=== PATIENT | female | born 1940 | race Caucasian/White ===

== ENCOUNTER 2016-12-18 20:29 | Emergency (ER) | payer MEDICARE, OTHER ==
[2016-12-18] MEDS ORDERED: Sodium Chloride 0.9% 10 ML Syringe FLUSH PRN (21:59)
[2016-12-18] MEDS ORDERED: Sodium Chloride 0.9% 1,000 ML IV SCH (22:00)
[2016-12-18] MEDS ORDERED: Ondansetron 4 MG/2 ML SDV IVPUSH ONE (22:55)
[2016-12-18] MEDS ORDERED: HYDROmorphone 0.5 MG/0.5 ML Syringe IVPUSH ONE (22:55)
--- NOTE | 2016-12-19 00:13 | EDM.PDOC ---
ED HPI GENERAL MEDICAL PROBLEM - General Chief Complaint: General Stated Complaint: FELL HURT HIP Time Seen by Provider: 12/18/16 21:40 Source of Information: Reports: Patient, Family (Daughter Bouchra Slater) History Limitations: Reports: No Limitations - History of Present Illness INITIAL COMMENTS - FREE TEXT/NARRATIVE: fall, pain on left chest and abdomen; this is a 76 year old female, who reports fell earlier today at [employer], then while at home, trip and fell onto her left side on a large rock/boulder. The object has a pointer end, which is what Mrs. Gaffney fell on. Reports "knocked the wind out of me". denies any LOC cc left chest and abdomen pain walking without any difficulties. 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 Pain Score (Numeric/FACES): 9 - Related Data Allergies Allergy/AdvReac Type Severity Reaction Status Date / Time dextrose [From Metamucil] Allergy Cannot Verified 12/18/16 21:17 Remember psyllium husk Allergy Cannot Verified 12/18/16 21:17 [From Metamucil] Remember psyllium seed Allergy Cannot Verified 12/18/16 21:17 [From Metamucil] Remember sucrose [From Metamucil] Allergy Cannot Verified 12/18/16 21:17 Remember Sulfa (Sulfonamide Allergy Cannot Verified 12/18/16 21:17 Antibiotics) Remember Home Meds: Home Meds DULoxetine HCl [Cymbalta] 30 mg PO DAILY 12/18/16 [History] Exenatide Microspheres [Bydureon Pen] 2 mg SQ WEEKLY 12/18/16 [History] Lisinopril/Hydrochlorothiazide [Lisinopril-Hctz 20-12.5 mg Tab] 1 each PO DAILY 12/18/16 [History] Omeprazole 40 mg PO DAILY 12/18/16 [History] Polyethylene Glycol 3350 [MiraLAX] 1 dose PO ASDIRECTED PRN 12/18/16 [History] atorvaSTATin [Lipitor] 20 mg PO ONETIME 12/18/16 [History] metFORMIN [Glucophage XR] 500 mg PO DAILY 12/18/16 [History] Past Medical History HEENT History: Reports: Cataract Cardiovascular History: Reports: High Cholesterol, Hypertension Respiratory History: Reports: COPD Gastrointestinal History: Reports: Cholelithiasis, GERD Musculoskeletal History: Reports: Arthritis, Back Pain, Chronic, Fracture, Osteoporosis Psychiatric History: Reports: Depression Endocrine/Metabolic History: Reports: Diabetes, Type II - Infectious Disease History Infectious Disease History: Reports: C-Difficile, Herpes, Measles - Past Surgical History HEENT Surgical History: Reports: Cataract Surgery, Tonsillectomy GI Surgical History: Reports: Appendectomy, Cholecystectomy Female Surgical History: Reports: Hysterectomy Neurological Surgical History: Reports: Discectomy, Lumbar Spine, Spinal Fusion Social & Family History - Tobacco Use Smoking Status *Q: Former Smoker Used Tobacco, but Quit: Yes Month Tobacco Last Used: 1980 - Caffeine Use Caffeine Use: Reports: Coffee - Recreational Drug Use Recreational Drug Use: No - Living Situation & Occupation Living situation: Reports: Occupation: Retired ( to [employer], lives in [place].) ED ROS GENERAL - Review of Systems Review Of Systems: See Below Constitutional: Reports: Other (painful chest and abdomen.) HEENT: Reports: No Symptoms Respiratory: Reports: No Symptoms Cardiovascular: Reports: No Symptoms Endocrine: Reports: No Symptoms GI/Abdominal: Reports: Abdominal Pain : Reports: No Symptoms Musculoskeletal: Reports: Back Pain (left chest and ribs), Muscle Pain, Muscle Stiffness Skin: Reports: Bruising (left lateral abdoen) Neurological: Reports: No Symptoms Psychiatric: Reports: No Symptoms Hematologic/Lymphatic: Reports: No Symptoms Immunologic: Reports: No Symptoms ED EXAM, GENERAL - Physical Exam Exam: See Below Exam Limited By: Other (neat well groomed, dressed very nicely) General Appearance: Alert, WD/WN, Moderate Distress Eye Exam: Bilateral Eye: Periorbital Changes Ears: Normal External Exam Nose: Normal Inspection, Normal Mucosa, No Blood Throat/Mouth: Normal Inspection, Normal Lips, Normal Teeth, Normal Gums, Normal Oropharynx, Normal Voice, No Airway Compromise Head: Atraumatic, Normocephalic Neck: Normal Inspection, Supple, Non-Tender, Full Range of Motion Respiratory/Chest: Lungs Clear, Normal Breath Sounds, No Accessory Muscle Use, Other (left lower chest wall; ribs displacement noted to palpation) Cardiovascular: Regular Rate, Rhythm, No Edema, No Gallop, No Murmur Peripheral Pulses: 2+: Dorsalis Pedis (L), Dorsalis Pedis (R) GI/Abdominal: Normal Bowel Sounds, Soft, No Distention, No Abnormal Bruit, No Mass, Pelvis Stable, Tender (over left lateral bruised area.) (Female) Exam: Deferred Rectal (Female) Exam: Deferred Back Exam: Normal Inspection Extremities: Normal Inspection, Normal Range of Motion, Non-Tender, Normal Capillary Refill, No Pedal Edema Psychiatric: Normal Affect, Normal Mood Skin Exam: Warm Course - Vital Signs Last Recorded V/S: Last Vital Signs Temp 36.2 C 12/18/16 21:15 Pulse 73 12/19/16 00:54 Resp 16 12/19/16 00:54 BP 108/43 L 12/19/16 00:54 Pulse Ox 95 12/19/16 00:54 - Orders/Labs/Meds Orders: Active Orders 24 hr Category Date Time Status Chest Abdomen Pelvis wo Cont [CT] Stat Exams 12/18/16 21:56 Taken Saline Lock Insert [OM.PC] Routine Oth 12/18/16 21:59 Ordered Labs: Laboratory Tests 12/18/16 12/18/16 12/18/16 Range/Units 22:12 22:12 22:53 WBC 10.3 (4.5-11.0) K/uL RBC 4.28 (3.30-5.50) M/uL Hgb 11.8 L (12.0-15.0) g/dL Hct 36.9 (36.0-48.0) % MCV 86 (80-98) fL MCH 28 (27-31) pg MCHC 32 (32-36) % Plt Count 287 (150-400) K/uL Neut % (Auto) 69 H (36-66) % Lymph % (Auto) 20 L (24-44) % Bacon % (Auto) 8 H (2-6) % Eos % (Auto) 3 (2-4) % Baso % (Auto) 1 (0-1) % Sodium 138 L (140-148) mmol/L Potassium 3.2 L (3.6-5.2) mmol/L Chloride 100 (100-108) mmol/L Carbon Dioxide 33 H (21-32) mmol/L Anion Gap 8.2 (5.0-14.0) mmol/L BUN 20 H (7-18) mg/dL Creatinine 1.1 H (0.6-1.0) mg/dL Est Cr Clr Drug Dosing 40.09 mL/min Estimated GFR (MDRD) 48 L (>60) Glucose 165 H (74-106) mg/dL Calcium 9.3 (8.5-10.1) mg/dL Total Bilirubin 0.3 (0.2-1.0) mg/dL AST 15 (15-37) U/L ALT 19 (12-78) U/L Alkaline Phosphatase 76 (46-116) U/L Total Protein 7.3 (6.4-8.2) g/dL Albumin 3.5 (3.4-5.0) g/dL Globulin 3.8 H (2.3-3.5) g/dL Albumin/Globulin Ratio 0.9 L (1.2-2.2) Urine Color Yellow Urine Appearance Slightly cloudy Urine pH 5.0 (4.5-8.0) Ur Specific [place] 1.020 (1.008-1.030) Urine Protein Negative (NEGATIVE) mg/dL Urine Glucose (UA) Normal (NEGATIVE) mg/dL Urine Ketones Negative (NEGATIVE) mg/dL Urine Occult Blood Negative (NEGATIVE) Urine Nitrite Negative (NEGATIVE) Urine Bilirubin Negative (NEGATIVE) Urine Urobilinogen Normal (NORMAL) mg/dL Ur Leukocyte Esterase Large (NEGATIVE) Urine RBC 0-5 (0-5) Urine WBC 5-10 H (0-5) Ur Epithelial Cells Few Amorphous Sediment Not seen Urine Bacteria Not seen Urine Mucus Moderate Meds: Medications Discontinued Medications Generic Name Dose Route Start Last Admin Trade Name Freq PRN Reason Stop Dose Admin Hydromorphone HCl 0.5 mg 12/18/16 22:55 12/18/16 23:11 Dilaudid IVPUSH 12/18/16 22:56 0.5 mg ONETIME ONE Administration Sodium Chloride 1,000 mls @ 250 mls/hr 12/18/16 22:00 12/18/16 22:47 Normal Saline IV 250 mls/hr ASDIRECTED SERAFIN Administration Ondansetron HCl 4 mg 12/18/16 22:55 12/18/16 23:06 Zofran IVPUSH 07/07/17 22:56 4 mg ONETIME ONE Administration Sodium Chloride 10 ml 12/18/16 21:59 12/18/16 22:46 Saline Flush FLUSH 10 ml ASDIRECTED PRN Administration Keep Vein Open - Radiology Interpretation Free Text/Narrative:: Ct abdomen pelvis; no acute abdomen or pelvis,. minimally displaced poserior 10th to 12 th left sided rib fractures reveiwed CT report with Mrs. Gaffney and her daughter, given copy of imaging and radiologist report, advised to follow up with Primary Care for recheck, not interested in admission to Hospital. Departure - Departure Time of Disposition: 00:55 Disposition: Home, Self-Care 01 Condition: Good Clinical Impression: Bruise of muscle, Hx of aortic aneurysm Multiple fractures of ribs of left side Qualifiers: Encounter type: initial encounter Fracture type: closed Qualified Code(s): S22.42XA - Multiple fractures of ribs, left side, initial encounter for closed fracture - Discharge Information Instructions: Rib Fracture Referrals: Mendez Carson MD [Primary Care Provider] - Forms: ED Department Discharge Care Plan Goals: Multi rib fractures; 10th, 11th, 12th on left side, minimally displaced posterior -dicussed coarse of rib fractures and healing -medicate for pain; hydrocodone 5-325mg one every 4 to 6 hours as needed for pain #20 -medicate for pain and muscle spasm; Flexeril 10mg every 8 hours as needed for pain #15 -may apply ice to painful areas Bruising to left lower abdomen/pelvis -CT scan of [id number]; no acute abnormality of the chest, abdomen, and pelvis -may apply ice for comfort -medicate for pain will need follow up next week in Primary Care for recheck return to ER for any shortness of breath, fever,chills, increased pain or any concerns Hx of Aneurysmal dilatation of the ascending thoracic aorta measuring 4.3 cm, this was noted on previous CT scan measuring 4 cm -advise to follow up with Primary Care for recheck -return to ER for any shortness of breath, fainting, chest pain, or any concerns. - Problem List & Annotations (1) Bruise of muscle SNOMED Code(s): 321230639 Code(s): T14.8 - OTHER INJURY OF UNSPECIFIED BODY REGION Status: Acute Priority: Medium (2) Hx of aortic aneurysm SNOMED Code(s): 551473846 Code(s): Z86.79 - PERSONAL HISTORY OF OTHER DISEASES OF THE CIRCULATORY SYSTEM Status: Acute Priority: Medium (3) Multiple fractures of ribs of left side SNOMED Code(s): 3546761 Code(s): S22.42XA - MULTIPLE FRACTURES OF RIBS, LEFT SIDE, INIT FOR CLOS FX Status: Acute Priority: High Qualifiers: Encounter type: initial encounter Fracture type: closed Qualified Code(s) : S22.42XA - Multiple fractures of ribs, left side, initial encounter for closed fracture - My Orders Last 24 Hours: My Active Orders 12/18/16 21:56 Chest Abdomen Pelvis wo Cont [CT] Stat 12/18/16 21:59 Saline Lock Insert [OM.PC] Routine - Assessment/Plan Last 24 Hours: My Active Orders 12/18/16 21:56 Chest Abdomen Pelvis wo Cont [CT] Stat 12/18/16 21:59 Saline Lock Insert [OM.PC] Routine Plan: Multi rib fractures; 10th, 11th, 12th on left side, minimally displaced posterior -dicussed coarse of rib fractures and healing -medicate for pain; hydrocodone 5-325mg one every 4 to 6 hours as needed for pain #20 -medicate for pain and muscle spasm; Flexeril 10mg every 8 hours as needed for pain #15 -may apply ice to painful areas Bruising to left lower abdomen/pelvis -CT scan of [id number]; no acute abnormality of the chest, abdomen, and pelvis -may apply ice for comfort -medicate for pain will need follow up next week in Primary Care for recheck return to ER for any shortness of breath, fever,chills, increased pain or any concerns Hx of Aneurysmal dilatation of the ascending thoracic aorta measuring 4.3 cm, this was noted on previous CT scan measuring 4 cm -advise to follow up with Primary Care for recheck -return to ER for any shortness of breath, fainting, chest pain, or any concerns.
[2016-12-19 00:56] VITALS: BP 108/43
== END 2016-12-19 00:56 | disposition home or self-care (01) ==
LOC: JP.ED 20:29
DX: M80.80XA Other osteoporosis with current pathological fracture, unspecified site, initial encounter for fracture (principal); S30.1XXA Contusion of abdominal wall, initial encounter; W01.198A Fall on same level from slipping, tripping and stumbling with subsequent striking against other object, initial encounter; Z91.81 History of falling; Y92.007 Garden or yard of unspecified non-institutional (private) residence as the place of occurrence of the external cause; Z86.79 Personal history of other diseases of the circulatory system; E78.00 Pure hypercholesterolemia, unspecified; I10 Essential (primary) hypertension; J44.9 Chronic obstructive pulmonary disease, unspecified; K21.9 Gastro-esophageal reflux disease without esophagitis; F32.9 Major depressive disorder, single episode, unspecified; E11.9 Type 2 diabetes mellitus without complications; Z79.84 Long term (current) use of oral hypoglycemic drugs; Z79.899 Other long term (current) drug therapy; Z86.19 Personal history of other infectious and parasitic diseases; Z87.891 Personal history of nicotine dependence
CPT/HCPCS: 36415; 71250; 74176; 80053; 81001; 85025; 96361; 96374; 96375; 99284; J1170; J2405; J7040; J7050

== ENCOUNTER 2017-05-31 16:13 | Emergency (ER) | payer MEDICARE, OTHER ==
[2017-05-31 16:35] VITALS: BP 124/63
--- NOTE | 2017-05-31 17:51 | EDM.PDOC ---
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 She does have some erythematous lesions around the eye, temporal area and right scalp. However while at the petroleum terminal plant operator office she mentioned a brief loss of vision of the right eye several days ago, also temporal pain so there was a concern of temporal arteritis. She was sent over to the emergency room for evaluation and a sedimentation rate. Onset: Gradual Location: Reports: Head, Face Severity: Moderate Associated Symptoms: Reports: Headaches. Denies: Fever/Chills, Malaise, Nausea/ Vomiting, Shortness of Breath, Weakness - Related Data Allergies Allergy/AdvReac Type Severity Reaction Status Date / Time dextrose [From Metamucil] Allergy Cannot Verified 12/18/16 21:17 Remember psyllium husk Allergy Cannot Verified 12/18/16 21:17 [From Metamucil] Remember psyllium seed Allergy Cannot Verified 12/18/16 21:17 [From Metamucil] Remember sucrose [From Metamucil] Allergy Cannot Verified 12/18/16 21:17 Remember Sulfa (Sulfonamide Allergy Difficulty Verified 05/31/17 16:41 Antibiotics) Swallowing Home Meds: Home Meds DULoxetine HCl [Cymbalta] 30 mg PO DAILY 12/18/16 [History] Exenatide Microspheres [Bydureon Pen] 2 mg SQ WEEKLY 12/18/16 [History] Lisinopril/Hydrochlorothiazide [Lisinopril-Hctz 20-12.5 mg Tab] 1 each PO DAILY 12/18/16 [History] Omeprazole 40 mg PO DAILY 12/18/16 [History] Polyethylene Glycol 3350 [MiraLAX] 1 dose PO ASDIRECTED PRN 12/18/16 [History] atorvaSTATin [Lipitor] 20 mg PO ONETIME 12/18/16 [History] metFORMIN [Glucophage XR] 500 mg PO DAILY 12/18/16 [History] Past Medical History HEENT History: Reports: Cataract Cardiovascular History: Reports: High Cholesterol, Hypertension Respiratory History: Reports: COPD Gastrointestinal History: Reports: Cholelithiasis, GERD 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: Musculoskeletal History: Reports: Arthritis, Back Pain, Chronic, Fracture, Osteoporosis Neurological History: Reports: Neuropathy, Diabetic Psychiatric History: Reports: Depression Endocrine/Metabolic History: Reports: Diabetes, Type II - Infectious Disease History Infectious Disease History: Reports: C-Difficile, Herpes, Measles - Past Surgical History HEENT Surgical History: Reports: Cataract Surgery, Tonsillectomy GI Surgical History: Reports: Appendectomy, Cholecystectomy Female Surgical History: Reports: Hysterectomy Neurological Surgical History: Reports: Discectomy, Lumbar Spine, Spinal Fusion Musculoskeletal Surgical History: Reports: Knee Replacement Social & Family History - Tobacco Use Smoking Status *Q: Former Smoker Used Tobacco, but Quit: Yes Month Tobacco Last Used: 1980 - Caffeine Use Caffeine Use: Reports: Coffee - Alcohol Use Days Per Week of Alcohol Use: 1 Number of Drinks Per Day: 1 Total Drinks Per Week: 1 - Recreational Drug Use Recreational Drug Use: No - Living Situation & Occupation Living situation: Reports: Occupation: Retired ( to [employer], lives in [place].) ED ROS GENERAL - Review of Systems Review Of Systems: See Below Constitutional: Reports: Malaise. Denies: Fever, Chills HEENT: Reports: Eye Pain, Vision Change Respiratory: Denies: Shortness of Breath Cardiovascular: Denies: Chest Pain Endocrine: Denies: Fatigue GI/Abdominal: Denies: Abdominal Pain Musculoskeletal: Denies: Neck Pain Skin: Reports: Rash (Periorbital and right temporal and right scalp) Neurological: Reports: Headache Psychiatric: Reports: No Symptoms ED EXAM GENERAL W FULL EYE - Physical Exam Exam: See Below Exam Limited By: No Limitations General Appearance: Alert, No Apparent Distress Eye Exam: Bilateral Eye: EOMI, PERRL Eyelids: Right: Other (Patient had a few raised erythematous lesions around her right eye) Head: Other (Patient had several slightly raised tender erythematous lesions on the right side of the scalp extending into the right periorbital area) Respiratory/Chest: No Respiratory Distress Neurological: Alert, Oriented Psychiatric: Normal Affect, Normal Mood Skin Exam: Warm, Dry Course - Vital Signs Last Recorded V/S: Last Vital Signs Temp 97.4 F 05/31/17 16:54 Pulse 94 12/18/17 16:54 Resp 18 05/31/17 16:54 BP 124/63 05/31/17 16:54 Pulse Ox 92 L 05/31/17 16:54 - Orders/Labs/Meds Labs: Laboratory Tests 05/31/17 Range/Units 17:15 ESR 31 H (0-25) mm/hr - Re-Assessments/Exams Free Text/Narrative Re-Assessment/Exam: 05/31/17 17:51 Sedimentation rate was obtained. 05/31/17 18:02 Sedimentation rate was only 31. This level is more typical of shingles then temporal arteritis. I encouraged her to just take her medications as prescribed and return if worsening. Departure - Departure Time of Disposition: 18:09 Disposition: Home, Self-Care 01 Condition: Good Clinical Impression: Shingles Qualifiers: Herpes zoster complications: with ocular involvement Herpes zoster ocular complication detail: unspecified herpes zoster eye disease Qualified Code(s): B02.30 - Zoster ocular disease, unspecified - Discharge Information Instructions: Shingles, [id number] Referrals: Mendez Carson MD [Primary Care Provider] - Forms: ED Department Discharge Care Plan Goals: Take shingles medication as prescribed and return anytime if worsening or concerns.
== END 2017-05-31 18:09 | disposition home or self-care (01) ==
LOC: JP.ED 16:13
DX: B02.30 Zoster ocular disease, unspecified (principal); I10 Essential (primary) hypertension; E78.00 Pure hypercholesterolemia, unspecified; K21.9 Gastro-esophageal reflux disease without esophagitis; E11.40 Type 2 diabetes mellitus with diabetic neuropathy, unspecified; F32.9 Major depressive disorder, single episode, unspecified; Z87.891 Personal history of nicotine dependence; Z79.84 Long term (current) use of oral hypoglycemic drugs; Z79.899 Other long term (current) drug therapy; Z88.2 Allergy status to sulfonamides; Z88.8 Allergy status to other drugs, medicaments and biological substances; Z91.048 Other nonmedicinal substance allergy status
CPT/HCPCS: 36415; 85651; 99283; 99284

== ENCOUNTER 2019-07-01 19:14 | Emergency (ER) | payer MEDICARE, OTHER ==
[2019-07-01 20:31] VITALS: BP 133/67; PULSE 92
--- NOTE | 2019-07-01 20:48 | EDM.PDOC ---
ED HPI GENERAL MEDICAL PROBLEM - General Chief Complaint: Lower Extremity Injury/Pain Stated Complaint: FELL,HURT BOTH LEGS Time Seen by Provider: 07/01/19 20:40 Source of Information: Reports: Patient History Limitations: Reports: No Limitations - History of Present Illness INITIAL COMMENTS - FREE TEXT/NARRATIVE: Patient presents for evaluation of left knee and ankle injuries after she slipped carrying a container of water for her dog. She was going down steps and somehow misplaced her foot or slipped on the surface of the step and fell down to the surface of the ground. The most noticeable area of injury is the medial portion of the left knee but she also has pain across the anterior portion of the left ankle. She was able to stand and bear weight on the leg but it did hurt she has left calf pain but only if she is standing upright. The right leg was not injured other than a small prepatellar abrasion. No other recognized injuries from this event tonight. Onset: Today Location: Reports: Lower Extremity, Left Front/Back Body Image: 1 - Hematoma 2 - Abrasion 3 - Pain. 4 - Calf pain. Quality: Reports: Dull, Throbbing Severity: Moderate Improves with: Reports: None Worsens with: Reports: Movement Context: Reports: Activity Associated Symptoms: Reports: No Other Symptoms left leg Pain Score (Numeric/FACES): 2 - Related Data Allergies Allergy/AdvReac Type Severity Reaction Status Date / Time dextrose [From Metamucil] Allergy Cannot Verified 07/01/19 20:31 Remember psyllium husk Allergy Cannot Verified 07/01/19 20:31 [From Metamucil] Remember psyllium seed Allergy Cannot Verified 07/01/19 20:31 [From Metamucil] Remember sucrose [From Metamucil] Allergy Cannot Verified 07/01/19 20:31 Remember Sulfa (Sulfonamide Allergy Difficulty Verified 07/01/19 20:31 Antibiotics) Swallowing Home Meds: Home Meds DULoxetine HCl [Cymbalta] 30 mg PO DAILY 12/18/16 [History] Exenatide Microspheres [Bydureon Pen] 2 mg SQ WEEKLY 12/18/16 [History] Omeprazole 40 mg PO DAILY 12/18/16 [History] Polyethylene Glycol 3350 [MiraLAX] 1 dose PO ASDIRECTED PRN 12/18/16 [History] atorvaSTATin [Lipitor] 20 mg PO ONETIME 12/18/16 [History] metFORMIN [Glucophage XR] 500 mg PO DAILY 12/18/16 [History] Acyclovir [Zovirax 5% Oint] 1 applic TOP BID PRN 07/01/19 [History] Losartan/Hydrochlorothiazide [Losartan-HCTZ 50-12.5 MG] 1 tab PO DAILY 07/01/19 [History] Past Medical History HEENT History: Reports: Cataract Cardiovascular History: Reports: High Cholesterol, Hypertension Respiratory History: Reports: COPD Gastrointestinal History: Reports: Cholelithiasis, GERD 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: Musculoskeletal History: Reports: Arthritis, Back Pain, Chronic, Fracture, Osteoporosis Neurological History: Reports: Neuropathy, Diabetic Psychiatric History: Reports: Depression Endocrine/Metabolic History: Reports: Diabetes, Type II - Infectious Disease History Infectious Disease History: Reports: C-Difficile, Herpes, Measles - Past Surgical History HEENT Surgical History: Reports: Cataract Surgery, Tonsillectomy GI Surgical History: Reports: Appendectomy, Cholecystectomy Female Surgical History: Reports: Hysterectomy Neurological Surgical History: Reports: Discectomy, Lumbar Spine, Spinal Fusion Musculoskeletal Surgical History: Reports: Knee Replacement Social & Family History - Caffeine Use Caffeine Use: Reports: Coffee - Living Situation & Occupation Living situation: Reports: Occupation: Retired ( to [employer], lives in [place].) Review of Systems - Review of Systems Review Of Systems: Comprehensive ROS is negative, except as noted in HPI. Musculoskeletal: Reports: Leg Pain, Foot Pain. Denies: Shoulder Pain, Back Pain Skin: Reports: Other (Superficial abrasions to both knees.) ED EXAM, GENERAL - Physical Exam Exam: See Below Exam Limited By: No Limitations General Appearance: Mild Distress Extremities: Joint Swelling (Medial aspect of the left knee. There is pain across the anterior portion of the left ankle joint. There is diffuse calf muscle tenderness in the left leg as well.), Leg Pain. No: Increased Warmth, Mottled Course - Vital Signs Last Recorded V/S: Last Vital Signs Temp 36.0 C 07/01/19 20:42 Pulse 92 07/01/19 20:42 Resp 14 07/01/19 20:42 BP 133/67 07/01/19 20:42 Pulse Ox 94 L 07/01/19 20:42 - Re-Assessments/Exams Free Text/Narrative Re-Assessment/Exam: 07/02/19 03:41 X-rays of left knee and left ankle ordered and reviewed by me shows no evidence of fracture. There is some degenerative change and soft tissue effusions. I recommend cold packs to painful areas 20 minutes off and on as needed. OTC pain medication as needed. She has a wheeled walker at home as well as a walking stick and I recommend she use those at all times when moving about at home. She mentions several episodes where she has fallen at home for a number of reasons. I referred to her wheeled walker as her "broken hip insurance policy." She understands. 07/02/19 03:42 Departure - Departure Time of Disposition: 22:24 Disposition: Home, Self-Care 01 Condition: Good Clinical Impression: Contusion of knee, left Qualifiers: Encounter type: initial encounter Qualified Code(s): S80.02XA - Contusion of left knee, initial encounter Mild ankle sprain Qualifiers: Encounter type: initial encounter Laterality: left Qualified Code(s): S93.402A - Sprain of unspecified ligament of left ankle, initial encounter Strain of calf muscle Qualifiers: Encounter type: initial encounter Laterality: left Qualified Code(s): S86.812A - Strain of other muscle(s) and tendon(s) at lower leg level, left leg, initial encounter - Discharge Information *PRESCRIPTION DRUG MONITORING PROGRAM REVIEWED*: Not Applicable *COPY OF PRESCRIPTION DRUG MONITORING REPORT IN PATIENT MORENA: Not Applicable Instructions: Ankle Sprain, [id number], Contusion, [id number] Referrals: PCP,None [Primary Care Provider] - Forms: ED Department Discharge Additional Instructions: Apply cold packs 20 minutes off and on to painful areas. Tylenol as needed for pain. Use your wheeled walker at home to reduce your risk of falling and also reduce the risk of you're getting a broken hip! Return to ER if feeling worse in anyway. Sepsis Event Note - Focused Exam Vital Signs: Vital Signs Temp Pulse Resp BP Pulse Ox 07/01/19 20:42 36.0 C 92 14 133/67 94 L 07/01/19 20:29 36.0 C 92 14 133/67 94 L Date Exam was Performed: 07/02/19 Time Exam was Performed: 03:39
--- NOTE | 2019-07-01 21:52 | CRLCR ---
Indication: Injury and pain Technique: Left ankle 3 views. Comparison: None Findings: Bones: Alignment is normal. No fractures or bone lesions. Traction spurs present in the posterior calcaneus. Joint spaces: Unremarkable. Soft tissues: Unremarkable. Impression: No sign of acute injury. Dictated by: Tomasz Zheng MD @ 07/01/2019 21:51:56 (Electronically Signed)
--- NOTE | 2019-07-01 21:54 | CRLCR ---
Indication: Injury and pain. Technique: Left knee 3 views Comparison: None Findings: Bones: Alignment is normal. No fractures or bone lesions. Joint spaces: Moderate knee joint osteoarthritis. Large joint effusion is present. Soft tissues: Moderate atherosclerosis of the femoral artery. Impression: Prominent joint effusion is present. No other sign of acute injury. Dictated by Tomasz Zheng MD @ 07/01/2019 9:53:22 PM Dictated by: Tomasz Zheng MD @ 07/01/2019 21:53:27 (Electronically Signed)
== END 2019-07-01 22:33 | disposition home or self-care (01) ==
LOC: JP.ED 19:14
DX: S93.402A Sprain of unspecified ligament of left ankle, initial encounter (principal); S86.812A Strain of other muscle(s) and tendon(s) at lower leg level, left leg, initial encounter; S80.02XA Contusion of left knee, initial encounter; I10 Essential (primary) hypertension; E11.40 Type 2 diabetes mellitus with diabetic neuropathy, unspecified; F32.9 Major depressive disorder, single episode, unspecified; Z88.2 Allergy status to sulfonamides; Z88.8 Allergy status to other drugs, medicaments and biological substances; Z79.899 Other long term (current) drug therapy; Z79.84 Long term (current) use of oral hypoglycemic drugs; Z98.49 Cataract extraction status, unspecified eye; Z98.890 Other specified postprocedural states; Z90.49 Acquired absence of other specified parts of digestive tract; Z90.710 Acquired absence of both cervix and uterus; Z98.1 Arthrodesis status; W10.9XXA Fall (on) (from) unspecified stairs and steps, initial encounter
CPT/HCPCS: 73562-LT; 73610-LT; 99283-25

== ENCOUNTER 2019-08-11 20:40 | Emergency (ER) | payer MEDICARE, OTHER ==
[2019-08-11 21:17] VITALS: BP 128/63; PULSE 96
[2019-08-11] MEDS ORDERED: Aspirin 81 MG Tab.Chew PO ONE (21:18)
--- NOTE | 2019-08-11 21:35 | EDM.PDOC ---
ED HPI GENERAL MEDICAL PROBLEM - General Chief Complaint: Neurological Problem Stated Complaint: confused hard time talking headache Time Seen by Provider: 08/11/19 21:15 Source of Information: Reports: Patient, Family, Old Records, RN History Limitations: Reports: No Limitations - History of Present Illness INITIAL COMMENTS - FREE TEXT/NARRATIVE: 79 yo female here with several weeks of CHAVEZ's that are not normal for her and a spell of about 40 min duration before arrival of not being able to say what she wanted to say. Sx's of word finding deficit are resolved on arrival. Also mentions a new tremor in the past couple of weeks, L hand greater than R. Has not been to her provider for any of these sx's. Onset: Today (wording finding difficulty) Onset Date: 08/11/19 Duration: Minutes: (40), Resolved Prior to Arrival Location: Reports: Head Quality: Reports: Ache (headache for several weeks) Severity: Moderate Improves with: Reports: Medication Worsens with: Reports: Other (unknown) Context: Reports: Other (see HPI) Associated Symptoms: Reports: Confusion (transient today only), Other (tremor). Denies: Syncope Treatments TASSEL SNIPPER: Reports: Other (see below) (none) Left Upper Temporal Headache Pain Score (Numeric/FACES): 10 - Related Data Allergies Allergy/AdvReac Type Severity Reaction Status Date / Time dextrose [From Metamucil] Allergy Cannot Verified 08/11/19 21:06 Remember psyllium husk Allergy Cannot Verified 08/11/19 21:06 [From Metamucil] Remember psyllium seed Allergy Cannot Verified 08/11/19 21:06 [From Metamucil] Remember sucrose [From Metamucil] Allergy Cannot Verified 08/11/19 21:06 Remember Sulfa (Sulfonamide Allergy Difficulty Verified 08/11/19 21:06 Antibiotics) Swallowing Home Meds: Home Meds DULoxetine HCl [Cymbalta] 30 mg PO DAILY 12/18/16 [History] Exenatide Microspheres [Bydureon Pen] 2 mg SQ WEEKLY 12/18/16 [History] Omeprazole 40 mg PO DAILY 12/18/16 [History] atorvaSTATin [Lipitor] 20 mg PO ONETIME 12/18/16 [History] metFORMIN [Glucophage XR] 500 mg PO DAILY 12/18/16 [History] polyethylene glycoL 3350 [MiraLAX] 1 dose PO ASDIRECTED PRN 12/18/16 [History] Acyclovir [Zovirax 5% Oint] 1 applic TOP BID PRN 07/01/19 [History] Losartan/Hydrochlorothiazide [Losartan-HCTZ 50-12.5 MG] 1 tab PO DAILY 07/01/19 [History] Past Medical History HEENT History: Reports: Cataract Cardiovascular History: Reports: High Cholesterol, Hypertension Respiratory History: Reports: COPD Gastrointestinal History: Reports: Cholelithiasis, GERD 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: Musculoskeletal History: Reports: Arthritis, Back Pain, Chronic, Fracture, Osteoporosis Neurological History: Reports: Neuropathy, Diabetic Psychiatric History: Reports: Depression Endocrine/Metabolic History: Reports: Diabetes, Type II - Infectious Disease History Infectious Disease History: Reports: Chicken Pox, Measles, Mumps, Shingles - Past Surgical History HEENT Surgical History: Reports: Cataract Surgery, Tonsillectomy GI Surgical History: Reports: Appendectomy, Cholecystectomy Female Surgical History: Reports: Hysterectomy Neurological Surgical History: Reports: Discectomy, Lumbar Spine, Spinal Fusion Musculoskeletal Surgical History: Reports: Knee Replacement Social & Family History - Tobacco Use Smoking Status *Q: Former Smoker Used Tobacco, but Quit: Yes Month/Year Tobacco Last Used: 1981 - Caffeine Use Caffeine Use: Reports: Coffee Caffeine Use Comment: a pot of coffee per day - Alcohol Use Days Per Week of Alcohol Use: 3 Number of Drinks Per Day: 2 Total Drinks Per Week: 6 - Recreational Drug Use Recreational Drug Use: No - Living Situation & Occupation Living situation: Reports: Occupation: Retired ( to [employer], lives in [place].) ED ROS GENERAL - Review of Systems Review Of Systems: See Below Constitutional: Reports: No Symptoms HEENT: Reports: No Symptoms Respiratory: Reports: No Symptoms Cardiovascular: Reports: No Symptoms GI/Abdominal: Reports: No Symptoms : Reports: No Symptoms Musculoskeletal: Reports: No Symptoms Skin: Reports: No Symptoms Neurological: Reports: Confusion (transient today, resolved), Headache (for a few weeks), Trouble Speaking (hard to say what she wanted to say, now resolved.) Psychiatric: Reports: No Symptoms ED EXAM, NEURO - Physical Exam Exam: See Below Exam Limited By: No Limitations General Appearance: Alert, WD/WN, No Apparent Distress Eye Exam: Bilateral Eye: EOMI, Normal Inspection, PERRL Ears: Normal External Exam, Normal Canal, Hearing Grossly Normal, Normal TMs Nose: Normal Inspection, No Blood Throat/Mouth: Normal Inspection, Normal Lips, Normal Oropharynx, Normal Voice, No Airway Compromise Head Exam: Atraumatic, Normocephalic Neck: Normal Inspection Respiratory/Chest: No Respiratory Distress, Lungs Clear, Normal Breath Sounds, No Accessory Muscle Use Cardiovascular: Regular Rate, Rhythm, No Edema GI/Abdominal: Normal Bowel Sounds, Soft, Non-Tender, No Distention Neurological: Alert, Normal Mood/Affect, CN II-XII Intact, No Motor/Sensory Deficits, Oriented x 3 Back Exam: Normal Inspection. No: CVA Tenderness (R), CVA Tenderness (L) Extremities: Normal Inspection, Normal Range of Motion, Non-Tender, No Pedal Edema Psychiatric: Normal Affect, Normal Mood Skin Exam: Warm, Dry, Intact, Normal Color, No Rash Course - Vital Signs Last Recorded V/S: Last Vital Signs Temp 35.8 C L 08/11/19 21:16 Pulse 96 08/11/19 21:16 Resp 18 08/11/19 21:16 BP 128/63 08/11/19 21:16 Pulse Ox 98 08/11/19 21:16 - Orders/Labs/Meds Orders: Active Orders 24 hr Category Date Time Status UA W/MICROSCOPIC [URIN] Stat Lab 08/11/19 21:29 Ordered Labs: Laboratory Tests 08/11/19 08/11/19 Range/Units 21:41 21:41 WBC 8.2 (4.5-11.0) K/uL RBC 4.35 (3.30-5.50) M/uL Hgb 11.3 L (12.0-15.0) g/dL Hct 37.5 (36.0-48.0) % MCV 86 (80-98) fL MCH 26 L (27-31) pg MCHC 30 L (32-36) % Plt Count 309 (150-400) K/uL Sodium 141 (140-148) mmol/L Potassium 3.5 L (3.6-5.2) mmol/L Chloride 101 (100-108) mmol/L Carbon Dioxide 30 (21-32) mmol/L Anion Gap 13.5 (5.0-14.0) mmol/L BUN 15 (7-18) mg/dL Creatinine 0.9 (0.6-1.0) mg/dL Est Cr Clr Drug Dosing 45.77 mL/min Estimated GFR (MDRD) > 60 (>60) Glucose 115 H (74-106) mg/dL Calcium 9.5 (8.5-10.1) mg/dL Troponin I < 0.017 (0.000-0.056) ng/mL Meds: Medications Discontinued Medications Generic Name Dose Route Start Last Admin Trade Name Freq PRN Reason Stop Dose Admin Aspirin 324 mg 08/11/19 21:18 08/11/19 21:27 Aspirin PO 08/11/19 21:19 324 mg ONETIME ONE Administration - Radiology Interpretation Free Text/Narrative:: Head CT scan-negative CT Results Date: 08/11/19 - Re-Assessments/Exams Free Text/Narrative Re-Assessment/Exam: 08/11/19 22:53 Doing well, does not want hospitalization at this time. Departure - Departure Time of Disposition: 23:00 Disposition: Home, Self-Care 01 Condition: Fair Clinical Impression: TIA (transient ischemic attack) - Discharge Information *PRESCRIPTION DRUG MONITORING PROGRAM REVIEWED*: No *COPY OF PRESCRIPTION DRUG MONITORING REPORT IN PATIENT MORENA: No Referrals: PCP,None [Primary Care Provider] - Forms: ED Department Discharge Additional Instructions: Take a baby aspirin daily with food. Follow up with your provider early next week to get scheduled for carotid ultrasounds, echocardiogram, and potentially other tests to work up the cause of what happened today. Return if worse. Sepsis Event Note - Evaluation Sepsis Screening Result: No Definite Risk - Focused Exam Vital Signs: Vital Signs Temp Pulse Resp BP Pulse Ox 08/11/19 21:16 35.8 C L 96 18 128/63 98 Date Exam was Performed: 08/11/19 Time Exam was Performed: 22:50 - My Orders Last 24 Hours: My Active Orders 08/11/19 21:29 UA W/MICROSCOPIC [URIN] Stat - Assessment/Plan Last 24 Hours: My Active Orders 08/11/19 21:29 UA W/MICROSCOPIC [URIN] Stat
--- NOTE | 2019-08-11 22:48 | CRLCT ---
INDICATION: Headache. TECHNIQUE: Noncontrast axial images. Coronal reconstructions. COMPARISON: None. FINDINGS: There is no abnormal intracranial mass effect or midline shift. No intracranial hemorrhage. Mild periventricular white matter changes likely related to chronic small vessel disease. A few small remote lacunar infarcts are seen in the basal ganglia and thalami. CSF spaces are age-appropriate. No acute osseous abnormality. Visualized portions of the paranasal sinuses and mastoids are clear. IMPRESSION: No CT evidence of an acute intracranial abnormality. Dictated by Tate Schaefer MD @ 08/11/2019 10:46:22 PM Please note that all CT scans at this facility use dose modulation, iterative reconstruction, and/or weight-based dosing when appropriate to reduce radiation dose to as low as reasonably achievable. Dictated by: Tate Schaefer MD @ 08/11/2019 22:46:32 (Electronically Signed)
== END 2019-08-11 23:22 | disposition home or self-care (01) ==
LOC: JP.ED 20:40
DX: G45.9 Transient cerebral ischemic attack, unspecified (principal); E11.40 Type 2 diabetes mellitus with diabetic neuropathy, unspecified; E78.00 Pure hypercholesterolemia, unspecified; I10 Essential (primary) hypertension; J44.9 Chronic obstructive pulmonary disease, unspecified; F32.9 Major depressive disorder, single episode, unspecified; K21.9 Gastro-esophageal reflux disease without esophagitis; Z88.2 Allergy status to sulfonamides; Z79.84 Long term (current) use of oral hypoglycemic drugs; Z79.899 Other long term (current) drug therapy; Z87.891 Personal history of nicotine dependence
CPT/HCPCS: 36415; 70450; 80048; 84484; 85027; 99284; 99285; A9270

== ENCOUNTER 2021-04-09 21:58 | Emergency (ER) | payer MEDICARE, OTHER ==
[2021-04-09 22:17] VITALS: BP 162/76; PULSE 85
--- NOTE | 2021-04-09 22:46 | EDM.PDOC ---
ED HPI GENERAL MEDICAL PROBLEM - General Chief Complaint: Head Injury Stated Complaint: HIT HEAD Time Seen by Provider: 04/09/21 22:17 Source of Information: Reports: Patient, Family (spouse & daughter at bedside) History Limitations: Reports: No Limitations - History of Present Illness INITIAL COMMENTS - FREE TEXT/NARRATIVE: This emergency room today secondary to sensation of blacking out dizziness that occurred when she was at the computer this evening she said she had tunneling of her vision and became dizzy she did get out on the down on the floor out of the chair so that she would not pass out and fall she states that she then crawled to the doorway and yelled for her for some help who then called her daughter patient states that she was dizzy and vomited x3 is also clammy in nature during acute episode. Patient states now in the emergency the room the symptoms have almost resolved. She denies any other symptoms no chest pain discomfort shortness of breath difficulty breathing or concerns otherwise denies any headache or visual changes at this time. Patient also reports that she fell while she was outside a couple of days ago hitting the bridge of her nose as well as the left side of her head on the edge of the sidewalk she is not sure exactly what happened but she was out using the leaf blower blowing leaves when she tripped apparently over the sidewalk edge. She denies any loss of consciousness at that time and she states that she has been fine since that fall event occurred in fact today she states that she cleaned house without any d ifficulty. Patient has been eating her normal diet having her normal activity. Patient states that she has a new provider appointment on 14 April that is already scheduled and had labs done last week for this PMH--DM2 (oral), HLP, HTN, GERD, constipation, cold sores, hx CVA, peripheral neuropathy, chronic dizzy episodes/vertigo Meds--Metformin, atorvastatin, omeprazole, losartan/HCT, Cymbalta, Zovirax ointment as needed, Plavix, baby aspirin, MiraLAX,bidurian injection every couple weeks, meclizine prn Allergies reviewed in EMR (sulfa, metamucil) Tob--former EtOH--occ glass of wine Drugs--denies Denies COVID infection history, has received COVID immunization ([employer])/needs booster still; has received her annual influenza vaccination for this season () - Related Data Allergies Allergy/AdvReac Type Severity Reaction Status Date / Time dextrose [From Metamucil] Allergy Cannot Verified 04/09/21 22:18 Remember psyllium husk Allergy Cannot Verified 04/09/21 22:18 [From Metamucil] Remember psyllium seed Allergy Cannot Verified 04/09/21 22:18 [From Metamucil] Remember sucrose [From Metamucil] Allergy Cannot Verified 04/09/21 22:18 Remember Sulfa (Sulfonamide Allergy Difficulty Verified 04/09/21 22:18 Antibiotics) Swallowing Home Meds: Home Meds DULoxetine HCl [Cymbalta] 30 mg PO DAILY 12/18/16 [History] Exenatide Microspheres [Bydureon Pen] 2 mg SQ WEEKLY 12/18/16 [History] Omeprazole 40 mg PO DAILY 12/18/16 [History] atorvaSTATin [Lipitor] 20 mg PO ONETIME 12/18/16 [History] metFORMIN [Glucophage XR] 500 mg PO DAILY 12/18/16 [History] polyethylene glycoL 3350 [MiraLAX] 1 dose PO ASDIRECTED PRN 12/18/16 [History] Acyclovir [Zovirax 5% Oint] 1 applic TOP BID PRN 07/01/19 [History] Losartan/Hydrochlorothiazide [Losartan-HCTZ 50-12.5 MG] 1 tab PO DAILY 07/01/19 [History] Clopidogrel [Plavix] 1 tab PO DAILY 04/09/21 [History] Past Medical History HEENT History: Reports: Cataract Cardiovascular History: Reports: High Cholesterol, Hypertension Respiratory History: Reports: COPD Gastrointestinal History: Reports: Cholelithiasis, 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: Musculoskeletal History: Reports: Arthritis, Back Pain, Chronic, Fracture, Osteoporosis Neurological History: Reports: Neuropathy, Diabetic Psychiatric History: Reports: Depression Endocrine/Metabolic History: Reports: Diabetes, Type II - Infectious Disease History Infectious Disease History: Reports: Chicken Pox, Measles, Mumps, Shingles - Past Surgical History HEENT Surgical History: Reports: Cataract Surgery, Tonsillectomy GI Surgical History: Reports: Appendectomy, Cholecystectomy Female Surgical History: Reports: Hysterectomy Neurological Surgical History: Reports: Discectomy, Lumbar Spine, Spinal Fusion Musculoskeletal Surgical History: Reports: Knee Replacement Social & Family History - Tobacco Use Tobacco Use Status *Q: Former Tobacco User Used Tobacco, but Quit: Yes Month/Year Tobacco Last Used: 06/1999 - Caffeine Use Caffeine Use: Reports: Coffee Caffeine Use Comment: a pot of coffee per day - Recreational Drug Use Recreational Drug Use: No - Living Situation & Occupation Living situation: Reports: Occupation: Retired ( to [employer], lives in [place].) ED ROS GENERAL - Review of Systems Review Of Systems: Comprehensive ROS is negative, except as noted in HPI. Constitutional: Reports: No Symptoms HEENT: Reports: No Symptoms Respiratory: Reports: No Symptoms Cardiovascular: Reports: No Symptoms. Denies: Chest Pain GI/Abdominal: Reports: Nausea, Vomiting. Denies: Abdominal Pain : Reports: No Symptoms Musculoskeletal: Reports: No Symptoms Skin: Reports: No Symptoms Neurological: Reports: Dizziness. Denies: Confusion, Headache, Numbness, P aresthesia, Syncope, Trouble Speaking, Change in Speech ED EXAM, HEAD INJURY - Physical Exam Exam: See Below Exam Limited By: No Limitations General Appearance: Alert, WD/WN, No Apparent Distress Head: Normocephalic, Facial Abrasions (bridge of nose from fall several days ago) Nexus Criteria: No: Posterior, Midline Cervical Tenderness, Evidence of Intoxication, Altered Level of Consciousness, Focal Neurological Deficit, Painful Distraction Injuries Eyes: Bilateral Eye: EOMI, Normal Inspection, PERRL Ears: Normal External Exam, Hearing Grossly Normal Nose: Other (scab/abrasion on bridge of nose from fall several days ago) Throat/Mouth: Normal Inspection, Normal Voice, No Airway Compromise Neck: Non-Tender, Full Range of Motion, Normal Alignment, Normal Inspection Respiratory: No Respiratory Distress, Lungs Clear, Normal Breath Sounds, Chest Non-Tender Cardiovascular: Normal Peripheral Pulses, Regular Rate, Rhythm, No Edema, No Murmur GI/Abdominal Exam: Normal Bowel Sounds, Soft, Non-Tender (Female) Exam: Deferred Rectal (Female) Exam: Deferred Back Exam: Normal Inspection, Full Range of Motion Extremities: Normal Inspection, Normal Range of Motion, No Pedal Edema, Normal Capillary Refill Neurologic: No Motor/Sensory Deficits, Alert, Normal Mood/Affect, Oriented x 3. No: Abnormal shuttleless loom weaver II-XII Skin: Normal Color, Warm/Dry - Orange Coma Score Best Eye Response (Julissa): (4) Open Spontaneously Best Verbal Response (Julissa): (5) Oriented Best Motor Response (Julissa): (6) Obeys Commands #1 Interpretation EKG Date: 04/09/21 Time: 22:41 (2249) Rhythm: NSR (With PVC, with first-degree AV block) Rate (Beats/Min): 81 [place]: Normal P-Wave: Present (PR237, left atrial enlargement, low voltage limb leads) QRS: Normal ([id number]) ST-T: Normal QT: Prolonged (Prolonged QT, QT/GFq511/489) Course - Vital Signs Text/Narrative:: 2340--in room to discuss with patient and family today's ER findings to include mild anemia mild hypokalemia mild dehydration and hyperglycemia in addition to chronic vertigo recommend that she increase her fluids to stay well-hydrated drinking water or juice or sports drinks of choice as recommended to avoid high sugar drinks using the low or no sugar varieties. Follow-up with primary care provider as already indicated and will provide a prescription for meclizine as she states she has run out at this time. She and family verbalized understanding agree with plan of care ready for discharge Last Recorded V/S: Last Vital Signs Temp 97.6 F 04/09/21 22:15 Pulse 85 04/09/21 22:15 Resp 16 04/09/21 22:15 BP 162/76 H 04/09/21 22:15 Pulse Ox 97 04/09/21 22:15 - Orders/Labs/Meds Orders: Active Orders 24 hr Category Date Time Status Head wo Cont [CT] Stat Exams 04/09/21 22:34 Taken EKG 12 Lead [EK] Routine Ther 04/09/21 22:34 Ordered Labs: Laboratory Tests 04/09/21 04/09/21 Range/Units 22:54 22:54 WBC 9.3 (4.5-11.0) K/uL RBC 4.22 (3.30-5.50) M/uL Hgb 11.5 L (12.0-15.0) g/dL Hct 35.9 L (36.0-48.0) % MCV 85 (80-98) fL MCH 27 (27-31) pg MCHC 32 (32-36) % Plt Count 303 (150-400) K/uL Neut % (Auto) 76.8 H (36-66) % Lymph % (Auto) 13.1 L (24-44) % [place] % (Auto) 7.6 H (2-6) % Eos % (Auto) 2.1 (2-4) % Baso % (Auto) 0.4 (0-1) % Sodium 137 L (140-148) mmol/L Potassium 3.3 L (3.6-5.2) mmol/L Chloride 98 L (100-108) mmol/L Carbon Dioxide 30 (21-32) mmol/L Anion Gap 12.3 (5.0-14.0) mmol/L BUN 19 H (7-18) mg/dL Creatinine 1.2 H (0.6-1.0) mg/dL Est Cr Clr Drug Dosing 33.18 mL/min Estimated GFR (MDRD) 43 L (>60) Glucose 170 H (74-106) mg/dL Calcium 9.2 (8.5-10.1) mg/dL Total Bilirubin 0.3 (0.2-1.0) mg/dL AST 13 L (15-37) U/L ALT 19 (12-78) U/L Alkaline Phosphatase 83 (46-116) U/L Total Protein 7.5 (6.4-8.2) g/dL Albumin 3.5 (3.4-5.0) g/dL Globulin 4.0 H (2.3-3.5) g/dL Albumin/Globulin Ratio 0.9 L (1.2-2.2) Departure - Departure Time of Disposition: 23:41 Disposition: Home, Self-Care 01 Clinical Impression: Dizzy spells, Fall on same level from slipping, tripping and stumbling with subsequent striking against furniture, initial encounter, Hypertension, Mild anemia, Hypokalemia, Dehydration with hyponatremia, Type 2 diabetes mellitus with hyperglycemia, without long-term current use of insulin Abrasion of nose Qualifiers: Encounter type: initial encounter Qualified Code(s): S00.31XA - Abrasion of nose, initial encounter Head injury Qualifiers: Encounter type: initial encounter Qualified Code(s): S09.90XA - Unspecified injury of head, initial encounter - Discharge Information *PRESCRIPTION DRUG MONITORING PROGRAM REVIEWED*: Not Applicable *COPY OF PRESCRIPTION DRUG MONITORING REPORT IN PATIENT MORENA: Not Applicable Instructions: Fall Prevention in the Home, Adult, [id number], Post-Concussion Syndrome, [id number], Vertigo, [id number], How to Perform the Paxton Maneuver, Head Injury, Adult, [id number], Anemia, Hypokalemia, How to Take Your Blood Pressure, Dehydration, Adult, [id number], Hyperglycemia, [id number] Referrals: PCP,None [Primary Care Provider] - Forms: ED Department Discharge Additional Instructions: Ensure you are drinking plenty of fluids--water, juice, sports drinks of choice (avoid drinks high in sugar due to your diabetes) Follow up with your PCM as already scheduled on Apr to follow up today's ER visit/concerns and ongoing chronic medical care needs Sepsis Event Note (ED) - Evaluation Sepsis Screening Result: No Definite Risk - Focused Exam Vital Signs: Vital Signs Temp Pulse Resp BP Pulse Ox 04/09/21 22:15 97.6 F 85 16 162/76 H 97 - My Orders Last 24 Hours: My Active Orders 04/09/21 22:34 Head wo Cont [CT] Stat EKG 12 Lead [EK] Routine - Assessment/Plan Last 24 Hours: My Active Orders 04/09/21 22:34 Head wo Cont [CT] Stat EKG 12 Lead [EK] Routine
--- NOTE | 2021-04-10 00:41 | CRLCT ---
For Patients: As a result of the Cures Act, medical imaging exams and procedure reports are released immediately into your electronic medical record. You may view this report before your referring provider. If you have questions, please contact your health care provider. INDICATION: FELL 2 DAYS AGO, DIZZY EPISODE TODAY CT HEAD WITHOUT CONTRAST TECHNIQUE: Multiple axial CT images were performed through the head without intravenous contrast administration. COMPARISON: 08/11/[address] FINDINGS: No acute intracranial hemorrhage is identified. No extra-axial collections are evident and there is no mass effect or midline shift. There is mild diffuse age-related brain atrophy. Ventricular size and configuration are within normal limits for the patient`s age. Stephenson-white differentiation is within normal limits. There is unchanged mild patchy hypodensity in the periventricular white matter, a nonspecific finding which most likely reflects chronic small vessel ischemic change. Osseous structures are within normal limits and no fractures are seen. Included portions of the paranasal sinuses and mastoid air cells are normally aerated. IMPRESSION: 1. No acute intracranial abnormality identified. 2. Mild age-related brain atrophy and white matter hypodensity consistent with chronic small vessel ischemic change. CARLO SINGLETARY MD [facility] Please note that all CT scans at this facility use dose modulation, iterative reconstruction, and/or weight-based dosing when appropriate to reduce radiation dose to as low as reasonably achievable. Dictated by: Ronni Singletary MD @ 04/10/2021 00:40:45 (Electronically Signed)
== END 2021-04-09 23:55 | disposition home or self-care (01) ==
LOC: JP.ED 21:58
DX: S00.31XA Abrasion of nose, initial encounter (principal); R42 Dizziness and giddiness; E11.65 Type 2 diabetes mellitus with hyperglycemia; D64.9 Anemia, unspecified; E87.6 Hypokalemia; E86.0 Dehydration; E87.1 Hypo-osmolality and hyponatremia; E78.00 Pure hypercholesterolemia, unspecified; I10 Essential (primary) hypertension; J44.9 Chronic obstructive pulmonary disease, unspecified; E11.40 Type 2 diabetes mellitus with diabetic neuropathy, unspecified; K21.9 Gastro-esophageal reflux disease without esophagitis; Z87.891 Personal history of nicotine dependence; Z88.2 Allergy status to sulfonamides; Z91.018 Allergy to other foods; Z79.899 Other long term (current) drug therapy; Z79.84 Long term (current) use of oral hypoglycemic drugs; W01.0XXA Fall on same level from slipping, tripping and stumbling without subsequent striking against object, initial encounter; Y92.480 Sidewalk as the place of occurrence of the external cause
CPT/HCPCS: 36415; 70450; 80053; 85025; 93005; 99284-25